=== PATIENT | female | born 2000 | race Asian ===

== ENCOUNTER 2019-06-15 10:37 | Emergency (ER) | payer OTHER ==
[~2019-06-15] VITALS: Ht 162.6 cm; Wt 88.0 kg
[2019-06-15 10:50] VITALS: BP 148/80; TEMP 98.4
== END 2019-06-15 13:26 | disposition home or self-care (01) ==
LOC: ED 10:37
DX: Z04.89 Encounter for examination and observation for other specified reasons (principal); Z3A.33 33 weeks gestation of pregnancy
CPT/HCPCS: 87502; 87651; 99283

== ENCOUNTER 2019-11-29 17:11 | Emergency (ER) | payer OTHER ==
[~2019-11-29] VITALS: Ht 162.6 cm; Wt 77.1 kg
[2019-11-29 17:20] VITALS: BP 106/67
[2019-11-29 17:59] LABS: POTASSIUM 3.4 mmol/L (3.6-5.2)
[2019-11-29 18:01] LABS: PLATELET COUNT 228 K/uL (152-353)
[2019-11-29 18:47] VITALS: TEMP 100.8
== END 2019-11-29 18:47 | disposition home or self-care (01) ==
LOC: ED 17:11
PROVIDERS: Hospitalist
DX: J02.9 Acute pharyngitis, unspecified (principal); R50.9 Fever, unspecified; J06.9 Acute upper respiratory infection, unspecified; Z03.818 Encounter for observation for suspected exposure to other biological agents ruled out
CPT/HCPCS: 80048; 85027; 87502; 87635; 87651; 96372; 99283; J0696; U0003

== ENCOUNTER 2019-12-03 23:00 | Emergency (ER) | payer OTHER ==
[~2019-12-03] VITALS: Ht 162.6 cm; Wt 77.1 kg
[2019-12-03 23:54] LABS: PLATELET COUNT 364 K/uL (152-353)
[2019-12-04 00:05] LABS: POTASSIUM 3.2 mmol/L (3.6-5.2)
[2019-12-04 00:20] LABS: PARTIAL THROMBOPLASTIN TIME 22.9 SECONDS (24.5-33.6)
[2019-12-04 02:16] VITALS: BP 122/74; TEMP 98.1
== END 2019-12-04 02:17 | disposition home or self-care (01) ==
LOC: ED 23:00
PROVIDERS: Hospitalist
DX: G44.209 Tension-type headache, unspecified, not intractable (principal); S16.1XXA Strain of muscle, fascia and tendon at neck level, initial encounter; V86.55XA Driver of 3- or 4- wheeled all-terrain vehicle (ATV) injured in nontraffic accident, initial encounter; Y92.89 Other specified places as the place of occurrence of the external cause
CPT/HCPCS: 36415; 80048; 80320; 81000; 81025; 85027; 85610; 85730; 96374; 99284; J1885

== ENCOUNTER 2019-12-13 10:15 | Emergency (ER) | payer OTHER ==
[~2019-12-13] VITALS: Ht 162.6 cm; Wt 77.1 kg
[2019-12-13 12:59] VITALS: BP 110/70; TEMP 98.7
== END 2019-12-13 13:00 | disposition home or self-care (01) ==
LOC: ED 10:15
PROC: 2W3QX1Z Immobilization of Right Lower Leg using Splint (ICD-10-PCS; principal; 2019-12-13)
DX: S92.001A Unspecified fracture of right calcaneus, initial encounter for closed fracture (principal); X50.1XXA Overexertion from prolonged static or awkward postures, initial encounter; Y92.096 Garden or yard of other non-institutional residence as the place of occurrence of the external cause
CPT/HCPCS: 99283

== ENCOUNTER 2021-04-17 00:16 | Emergency (ER) | payer OTHER ==
[~2021-04-17] VITALS: Ht 162.6 cm; Wt 72.6 kg
[2021-04-17 02:10] LABS: PLATELET COUNT 200 K/uL (152-353)
[2021-04-17 02:14] LABS: POTASSIUM 3.8 mmol/L (3.6-5.2)
[2021-04-17 03:45] VITALS: BP 108/70; TEMP 98.5
== END 2021-04-17 03:50 | disposition home or self-care (01) ==
LOC: ED 00:16
PROVIDERS: Emergency Medicine
DX: J40 Bronchitis, not specified as acute or chronic (principal); J18.9 Pneumonia, unspecified organism; Z20.822 Contact with and (suspected) exposure to COVID-19; F17.210 Nicotine dependence, cigarettes, uncomplicated
CPT/HCPCS: 36415; 80053; 81000; 81025; 85008; 85027; 87077; 87086; 87088; 87186; 87502; 87635; 99283; U0003

== ENCOUNTER 2021-11-10 19:14 | Emergency (ER) | payer OTHER ==
[~2021-11-10] VITALS: Ht 162.6 cm; Wt 72.6 kg
[2021-11-10 23:25] VITALS: BP 99/67; TEMP 98.9
[2021-11-10] MEDS ORDERED: AZIT250T3 PO (23:25)
== END 2021-11-10 23:30 | disposition home or self-care (01) ==
LOC: ED 19:14
DX: B34.9 Viral infection, unspecified (principal); J40 Bronchitis, not specified as acute or chronic; U07.1 COVID-19
CPT/HCPCS: 87502; 87635; 99282; U0003

== ENCOUNTER 2022-02-11 18:13 | Emergency (ER) | payer OTHER ==
[~2022-02-11] VITALS: Ht 162.6 cm; Wt 79.4 kg
[~2022-02-11 18:13] MED LIST: AZIT250T3 PO
[2022-02-11 18:20] VITALS: BP 98/74; TEMP 99.5
[2022-02-11 19:20] LABS: POTASSIUM 3.9 mmol/L (3.6-5.2)
[2022-02-11 19:27] LABS: PLATELET COUNT 264 K/uL (152-353)
== END 2022-02-11 21:00 | disposition home or self-care (01) ==
LOC: ED 18:13
PROVIDERS: Emergency Medicine
DX: R10.31 Right lower quadrant pain (principal); Z33.1 Pregnant state, incidental
CPT/HCPCS: 36415; 80053; 81002; 81025; 83690; 85027; 96360; 96374; 96375; 99284; J2270; J2405

== ENCOUNTER 2022-03-13 20:07 | Emergency (ER) | payer OTHER ==
[~2022-03-13] VITALS: Ht 162.6 cm; Wt 80.3 kg
[2022-03-13 20:30] VITALS: TEMP 98.2
[2022-03-13 23:19] VITALS: BP 113/76
== END 2022-03-13 23:19 | disposition home or self-care (01) ==
LOC: ED 20:07
DX: K29.60 Other gastritis without bleeding (principal)
CPT/HCPCS: 81002; 81025; 96372; 99283; J2405

== ENCOUNTER 2023-05-17 10:53 | Emergency (ER) | payer OTHER ==
[~2023-05-17] VITALS: Ht 162.6 cm; Wt 83.0 kg
[2023-05-17 11:06] VITALS: BP 124/66; TEMP 98.5
== END 2023-05-17 14:00 | disposition home or self-care (01) ==
LOC: ED 10:53
DX: M79.644 Pain in right finger(s) (principal); S00.511A Abrasion of lip, initial encounter; V49.60XA Unspecified car occupant injured in collision with unspecified motor vehicles in traffic accident, initial encounter; W22.10XA Striking against or struck by unspecified automobile airbag, initial encounter; Y93.89 Activity, other specified; Y92.89 Other specified places as the place of occurrence of the external cause
CPT/HCPCS: 81025; 99283